=== PATIENT | male | born 2000 | race Caucasian/White ===

== ENCOUNTER 2024-11-14 22:50 | Emergency (ER) | payer BC, SELFPAY ==
[2024-11-14 22:59] VITALS: BP 144/76
--- NOTE | 2024-11-15 | ED.GENMED ---
History of Present Illness
General
Chief Complaint: Cold/Flu/URI Symptoms
Source: patient
Exam Limitations: none
Time Seen by Provider: 11/14/24 23:47
History of Present Illness
History of Present Illness:
24yoM with no significant past medical history presenting for evaluation of flu-symptoms include like symptoms x 3 days. Fevers, body aches, congestion, and headache. He has been taking Mucinex [id number]. He denies any chest pain,
shortness of breath, abdominal pain, vomiting, diarrhea. No known sick contacts.
Phy Exam
General Physical Exam
General Presentation: well appearing and no apparent distress
General age: appears stated age
General Skin: warm and dry
General Habitus: normal
General Mental: alert
ENT Exam
ENT Exam: TM's normal, pharynx normal and normocephalic
Cardiovascular Exam
Cardiovascular Exam: tachycardia
Pulmonary Exam
Pulmonary Exam: lungs clear, no respiratory distress, no rales, no crackles and no rhonchi
Neurological Exam
Neurological Exam: alert
Latricia Coma Scale
Eye Opening: Spontaneous
Verbal Response: Oriented
Motor Response: Obeys Commands
GCS Total Score: 15
Skin Exam
Skin Exam: normal color and warm/dry
Psychiatric Exam
Psychiatric Exam: normal mood/affect
Sepsis
Sepsis Screening
Sepsis Assessment: Sepsis Ruled Out
Sepsis Screen
Sepsis Screen: Sepsis Ruled Out
Date: 11/15/24
Time: 00:01
Course
Orders/Labs/Results
Orders:
Orders
11/14/24 23:05
Influenza A+B Rapid Molecular Urgent
DAVID Source: Nasal Swab
Specimen Description:
Vital Signs
Initial and Last Documented VS:
Initial Vital Signs
Temp Pulse Resp BP Pulse Ox
100.7 F H 110 22 144/76 99
11/14/24 22:59 11/14/24 22:59 11/14/24 22:59 11/14/24 22:59 11/14/24 22:59
Last Documented Vital Signs
Temp Pulse Resp BP Pulse Ox
100.7 F H 110 22 144/76 99
11/14/24 22:59 11/14/24 22:59 11/14/24 22:59 11/14/24 22:59 11/14/24 22:59
MDM/Problems Addressed
Differential Diagnosis Includes:
24yoM here with flu-like symptoms x 3 days. Denies CP/SOB. Temp 100.7 on arrival with associated HR of 110. Oxygen saturation 99% on room air. Lungs clear to auscultation and respirations nonlabored. Remainder of exam is reassuring. Differential
diagnosis includes: Influenza, COVID, other viral illness, no clinical signs of pneumonia
Flu testing sent in triage and he tested positive for influenza B. No indication for further workup. Supportive care discussed. Advised follow-up with PCP and ED return precautions discussed. Patient in agreement with plan and was discharged in
stable condition.
*Critical Care Note
Total Time (30-74mins, 75-104mins- exclusive of procedures): Not Applicable
ED Attending Note
-
Portions of this chart may have been created with voice recognition software.� Occasional wrong word or��sound alike� substitutions may have occurred due to the inherent limitations of voice recognition software.
Discharge Plan
Departure
Patient Disposition: Home (Routine Discharge)
Date of Disposition: 11/15/24
Time of Disposition: 00:00
Patient with high blood pressure during this ER visit?: Yes
Discharge Problem:
Influenza B
Instructions: Flu in adults - ED discharge instructions
Activity Restrictions/Additional Instructions:
Drink plenty of fluids and rest. Take Tylenol and ibuprofen as needed for fever/body aches.
Please follow-up with your family doctor. Return to the ER with any worsening symptoms or shortness of breath.
Interventions
Interventions:
*Risk Screen - Suicide Last Done: 11/14/24 22:59
*Neglect/Abuse Screening Last Done: 11/14/24 22:59
Discharge Date and Time
Print Language: LEBANESE
== END 2024-11-15 00:26 | disposition home or self-care (01) ==
LOC: EMR 22:50
PROVIDERS: EMERGENCY PHYSICIAN Emergency Medicine; FAMILY PHYSICIAN Family Medicine
DX: J10.1 Influenza due to other identified influenza virus with other respiratory manifestations (principal)
CPT/HCPCS: 99282; 87502

== ENCOUNTER 2025-03-06 16:35 | Emergency (ER) | payer BC, SELFPAY ==
[2025-03-06 16:43] VITALS: BP 131/97
--- NOTE | 2025-03-06 19:07 | ED.GENMED ---
History of Present Illness
General
Chief Complaint: Back Pain
Source: patient and family
Time Seen by Provider: 03/06/25 17:40
History of Present Illness
History of Present Illness:
Note:
CHIEF COMPLAINT(S)
Back pain with radiation to the left leg and numbness in the left foot.
HISTORY OF PRESENT ILLNESS
The patient is a 24-year-old male who presents with back pain following a soccer game a few days ago. Initially, the patient experienced muscle tension, but it progressed to constant pain in the lower back, specifically around the L4 region per the
patient. The patient can no longer bend down noting pain worsening with attempted movements. Last night, the patient awoke with entire left leg paresthesia, particularly affecting the toes and also noting pain now into the right lower back too. The
pain radiates from the left side of the back down to the left hamstring. Although the pain originated on the left side, there is now also an ache on the right side and numbness in the left leg when seated. The patient denies bladder or bowel
incontinence but reports discomfort when sitting. There is no history of previous back trauma or significant medical history such as diabetes or cancer. The patient�s primary care provider prescribed cyclobenzaprine, naproxen, and
methylprednisolone, which have not significantly relieved the symptoms.
SOCIAL HISTORY
The patient denies any use of cigarettes, tobacco, alcohol, or illicit drugs. There is no social factor mentioned that affects health.
REVIEW OF SYSTEMS
- Musculoskeletal: Reports back pain with radiation to the left leg, pain in both the left and right sides, and difficulty bending.
- Neurological: Reports left foot paresthesia, leg weakness, and discomfort without bowel or bladder incontinence.
Review of Systems
Review of Systems
All Other Systems: ROS reviewed and negative except as documented in HPI and ROS
Phy Exam
Physical Exam
Physical Exam:
GENERAL: Alert , in no apparent distress at rest and is able to ambulate without any difficulties
HEAD: NCAT
EYE: clear conjunctiva b/l
NECK: Supple
BACK: Pain with forward flexion and right lateral bend, no focal tenderness, no midline bony tenderness, no rashes
NEUROLOGICAL: Alert and oriented, no focal neuro deficits. Patellar deep tendon reflexes intact and equal bilaterally, sensation grossly intact and equal to light touch bilateral lower extremities
SKIN: Warm and dry, skin intact.
MUSCULOSKELETAL: No edema, well perfused. EHL intact bilaterally
PSYCH: Normal and appropriate interaction.
Scores
Heart Failure Risk
Heart Failure Risk Score: Not Applicable
Heart Score for Chest Pain Patients
STEMI patient?: Not applicable
Withdrawal Assessment of Alcohol
Withdrawal Assessment Completed?: Not applicable
Course
Orders/Labs/Results
Orders:
Orders
03/06/25 18:01
CR Lumbar Spine Comp Min 4 Vw* Urgent
Comment:
Reason For Exam: lower back pain
Vital Signs
Initial and Last Documented VS:
Initial Vital Signs
Temp Pulse Resp BP Pulse Ox
98.2 F 111 16 131/97 99
03/06/25 16:43 03/06/25 16:43 03/06/25 16:43 03/06/25 16:43 03/06/25 16:43
Last Documented Vital Signs
Temp Pulse Resp BP Pulse Ox
98.2 F 68 18 138/80 99
03/06/25 16:43 03/06/25 19:21 03/06/25 19:21 03/06/25 19:21 03/06/25 19:21
MDM/Problems Addressed
Differential Diagnosis Includes:
The Differential Diagnosis includes, in no particular order and is not limited to:
1. Lumbar disc herniation
2. Sciatica
3. Spinal stenosis
4. Lumbar spondylosis
5. Paraspinal muscle strain
6. Sacroiliac joint dysfunction
7. Facet joint syndrome
8. Nerve root impingement
9. Lumbar radiculopathy
10. Epidural abscess or hematoma
MDM/Problems Addressed:
We will obtain an X-ray to evaluate for any fractures or malalignment in the lumbar spine. An MRI will be considered as an outpatient due to the possible presence of a disc herniation or pinched nerve contributing to the symptoms. Referral to a pain
dairy management specialist or utilization review specialist is advised. Adjustments to current medications considered, possibly switching or adding pain management strategies as necessary. Will contact patient's primary care provider
*Radiology
Radiology exam reviewed: preliminary read by ED provider (No acute fracture, mild degenerative changes L5-S1)
*Pulse Oximetry
SaO2: 99
Oxygen Mode of Delivery: Room air
*Critical Care Note
Total Time (30-74mins, 75-104mins- exclusive of procedures): Not Applicable
Patient Management
Social determinants of health affecting care: Strong social support
Discussion with other providers: PCP
Escalation/DeEscalation of care consider admission/obs:
X-ray shows some mild changes at L5-S1. Stable for discharge home and continued outpatient management. Follow-up with primary care provider as needed.
I did also notify patient's primary care provider via [place] text. They state that they did not send the patient to the ER for MRI and recommended outpatient treatment and orthopedics follow-up with potential need for outpatient MRI. They are aware
of the x-ray findings and will follow-up with the patient as needed.
ED Attending Note
-
Portions of this chart may have been created with voice recognition software.� Occasional wrong word or��sound alike� substitutions may have occurred due to the inherent limitations of voice recognition software.
Discharge Plan
Departure
Patient Disposition: Home (Routine Discharge)
Date of Disposition: 03/06/25
Time of Disposition: 19:12
Patient with high blood pressure during this ER visit?: No
Discharge Problem:
Acute lumbar radiculopathy
Instructions: Low Back Pain (DC)
Prescriptions:
New
baclofen 10 mg tablet
10 mg PO BID PRN (Reason: muscle spasm) Qty: 10 0RF
Referrals:
Fernanda Brewer CRNP [Family Provider, Family Practice]
Pernell Latif MD [Active, Orthopedics]
Interventions
Interventions:
*Risk Screen - Suicide Last Done: 03/06/25 18:46
*General Assessment Last Done: 03/06/25 18:46
*Neglect/Abuse Screening Last Done: 03/06/25 18:46
*ED- Fall Risk Assessment Last Done: 03/06/25 18:46
*ED COVID-19 Vaccine History Last Done: 03/06/25 18:46
*Nursing Disposition Last Done: 03/06/25 19:19
ED-Musculoskeletal Assessment Last Done: 03/06/25 18:46
Discharge Date and Time
Discharge Date/Time: 03/06/25 19:22
Print Language: MOZAMBICAN
[2025-03-06 19:21] VITALS: BP 138/80
== END 2025-03-06 19:22 | disposition home or self-care (01) ==
LOC: EMR 16:35
PROVIDERS: EMERGENCY PHYSICIAN Student in an Organized Health Care Education/Training Program; FAMILY PHYSICIAN Nurse Practitioner
DX: M51.17 Intervertebral disc disorders with radiculopathy, lumbosacral region (principal)
CPT/HCPCS: 99283; 72110; 99285